=== PATIENT | male | born 1990 | race Caucasian/White ===

== ENCOUNTER 2019-01-25 13:28 | Emergency (ER) | payer MEDICAID ==
[~2019-01-25] VITALS: Ht 182.9 cm; Wt 90.7 kg
[2019-01-25 13:33] VITALS: BP 140/72
--- NOTE | 2019-01-25 13:38 | PHYS DOC ---
Adult General Chief Complaint Chief Complaint: ABSCESS HPI HPI Patient is a 28 year old male with history of IV drug user presents to the ED today complaining of an abscess on the left antecubital joint that began a couple days ago. Patient states this is one of his injection sites for IV drug use. Denies any fever, denies any nausea vomiting. Review of Systems Review of Systems Constitutional: Denies fever or chills [] Musculoskeletal: Denies back pain or joint pain [] Integument: Reports left antecubital joint abscess Neurologic: Denies headache, focal weakness or sensory changes [] All other systems were reviewed and found to be within normal limits, except as documented in this note. Current Medications Current Medications Current Medications Medications (Trade) Dose Ordered Sig/Fausto Start Time Stop Time Status Last Admin Dose Admin Ceftriaxone Sodium (Rocephin Im) 1 gm 1X ONCE 01/25/19 13:45 01/25/19 13:52 DC 01/25/19 13:59 1 GM Lidocaine/Sodium Bicarbonate (Buffered Lidocaine 1%) 3 ml 1X ONCE 01/25/19 13:45 01/25/19 13:52 DC 01/25/19 13:59 3 ML Allergies Allergies Allergies Coded Allergies Type Severity Reaction Last Updated Verified No Known Drug Allergies 01/25/19 No Physical Exam Physical Exam Constitutional: Well developed, well nourished, no acute distress, non-toxic appearance. [] Skin: Left medial antecubital area with an indurated area approximately 4 x 4 cm with surrounding moderate erythema consistent with abscess with cellulitis. The abscess is fluctuant. The abscess is warm and tender to touch. Full range of motion to the left elbow. Adequate radial, medial, ulnar sensation to the left upper extremity. +2 left radial pulse. Cap refill less than 2 seconds the left fingers. Multiple scabs noted on the left forearm from drug use. Scar noted on the left antecubital joint from previous abscess. Back: No tenderness, no CVA tenderness. [] Extremities: No tenderness, no cyanosis, no clubbing, ROM intact, no edema. [] Neurologic: Alert and oriented X 3, normal motor function, normal sensory function, no focal deficits noted. [] Psychologic: Affect normal, judgement normal, mood normal. [] Current Patient Data Vital Signs Vital Signs Date Time Temp Pulse Resp B/P (MAP) Pulse Ox O2 Delivery O2 Flow Rate FiO2 01/25/19 13:33 98.4 104 16 140/72 (94) 98 Room Air 98.4 EKG EKG [] Radiology/Procedures Radiology/Procedures []PROCEDURE: ELBOW LEFT 3V Examination: 3 views of the left elbow History: History of redness, swelling. Comparison: None available. Findings/impression: The alignment of the elbow joint grossly appears unremarkable. No acute fracture or dislocation identified. Mild soft tissue swelling identified about the elbow joint probably edema or infection. Indication: abscess Procedure: The patient was positioned appropriately. Local anesthesia was buffered lidocaine. An incision was then made over the apex of the lesion with 11 blade and moderate amount of bloody purulent material was expressed. The drainage cavity was irrigated and packed with sterile gauze. The patients tetanus status updated as needed. The patient tolerated the procedure well. Complications: none. Course & Med Decision Making Course & Med Decision Making Pertinent Labs and Imaging studies reviewed. (See chart for details) This is a 28-year-old male patient with history of IV drug use presented to the ED today with an abscess with cellulitis of the left antecubital joint (one of his injection sites) The abscess was drained by me as noted in procedures, wound was packed. Patient was given Rocephin in the ED. Discharged with Bactrim and cephalexin. Tetanus up-to-date. We talked to patient about the importance of not using drugs. Instructed to return to the ED in 2 days for wound check and packing removal. Dragon Disclaimer Dragon Disclaimer This electronic medical record was generated, in whole or in part, using a voice recognition dictation system. Departure Departure Impression: Primary Impression: Cellulitis and abscess of upper extremity Additional Impression: Drug use Disposition: 01 HOME, SELF-CARE Condition: STABLE Patient Instructions: Abscess, Care After, Cellulitis, [id number] Additional Instructions: You were evaluated in the emergency room for an abscess with cellulitis on her left elbow. The abscess was drained and packed. Please return to the emergency room or see your doctor in 2 days for wound check and packing removal. We put you on antibiotics, ensure you take them until they're completed. Scripts Cephalexin (CEPHALEXIN) 500 Mg Tablet 1 TAB PO QID, #40 TAB Prov: LINDA BALLESTEROS APRN 01/25/19 Sulfamethoxazole/Trimethoprim (BACTRIM DS TABLET) 1 Each Tablet 1 TAB PO BID, #20 TAB Prov: LINDA BALLESTEROS APRN 01/25/19 Problem Qualifiers LINDA BALLESTEROS APRN Jan 25, 2019 13:38
[2019-01-25] MEDS ORDERED: LIDOCAINE WITH 8.4% SOD BICARB 3 ML DISP.SYRIN. INJ ONE (13:45)
[2019-01-25] MEDS ORDERED: cefTRIAXone IM 1 GM VIAL IM ONE (13:45)
--- NOTE | 2019-01-25 14:17 | RAD ---
Examination: 3 views of the left elbow History: History of redness, swelling. Comparison: None available. Findings/impression: The alignment of the elbow joint grossly appears unremarkable. No acute fracture or dislocation identified. Mild soft tissue swelling identified about the elbow joint probably edema or infection.
[2019-01-25] MEDS ORDERED: SULF1TAB24 PO (14:39)
[2019-01-25] MEDS ORDERED: CEPH500T PO (14:42)
== END 2019-01-25 14:52 | disposition home or self-care (01) ==
LOC: ER 13:28
DX: L02.414 Cutaneous abscess of left upper limb (principal); F19.90 Other psychoactive substance use, unspecified, uncomplicated
CPT/HCPCS: 10060; 73080; 96372; 99284; J0696